=== PATIENT | female | born 1990 | race African-American/Black ===

== ENCOUNTER → 2017-09-15 08:07 | Outpatient (CLI) | payer OTHER, SELFPAY ==
--- NOTE | 2017-09-15 | DI.MRI.S_ITS ---
PROCEDURE: MR KNEE RT WO CON INDICATIONS: right knee pain TECHNIQUE: Noncontrast sagittal PD fast spin echo and T2 fast spin echo with fat saturation, sagittal 3-D FLASH with fat saturation; coronal T1 spin echo and PD fast spin echo with fat saturation, and axial PD fast spin echo with fat saturation through the knee. COMPARISON: None. FINDINGS: Image quality: Excellent. Menisci: The medial and lateral menisci demonstrate normal morphology and internal signal. The meniscal root ligaments appear intact. Cruciate ligaments: The anterior and posterior cruciate ligaments appear intact. Medial structures: The medial collateral ligament appears intact. The posterior oblique ligament, semimembranosus tendon insertions, oblique popliteal ligament, and meniscocapsular junction appear intact. Visualized portions of the pes anserinus tendons appear normal. No abnormal bursal fluid. Lateral structures: The lateral collateral ligament, long and short heads of the biceps femoris tendon appear intact. The popliteus tendon appears normal; the popliteofibular ligament appears intact. The posterosuperior and anteroinferior popliteomeniscal fascicles appear intact. The arcuate and fabellofibular ligaments appear intact, on either side of the lateral inferior geniculate artery. Iliotibial band appears normal. Anterior structures: The quadriceps and patellar tendons appear intact. Patellar alignment is normal. No femoral trochlear dysplasia or ventral trochlear prominence. No edema in the infrapatellar fat pad. Bones and cartilage: No bone marrow contusions or fractures. The cartilage of the medial and lateral femorotibial compartments, as well as the patellofemoral compartment, appears normal in thickness. Joint space: There is physiologic knee joint fluid. No Duran's cyst. Normal appearing synovial plicae are incidentally noted. IMPRESSION: No internal derangement in the right knee. Dictated by: Miguel Winters M.D. on 09/15/2017 at 10:18 Approved by: Miguel Winters M.D. on 09/15/2017 at 18:29
== END ==
PROVIDERS: Visit Provider Pediatrics
DX: M25.561 Pain in right knee (principal)
CPT/HCPCS: 73721

== ENCOUNTER 2018-09-14 12:23 | Emergency (ER) | payer OTHER, SELFPAY ==
[2018-09-14 12:27] VITALS: BP 128/70; PULSE 95; RESP 14; TEMP 36.9; O2SAT 100
--- NOTE | 2018-09-14 12:35 | DI.US.S_ITS ---
PROCEDURE: US OB <= 14 WEEKS FETUS INDICATIONS: 11 WEEKS PREG, BRIGHT RED SPOTTING, H/O MIS @ 12 WEEKS OUTSIDE/PRIOR DATING DATA: Last menstrual period (LMP): 06/05/2018. LMP-based estimated date of delivery (ELAINA): 03/12/2019. First dating scan (date and location): 09/14/2018. Estimated date of delivery (ELAINA) from first dating scan: 03/29/2019. TECHNIQUE: Real-time scanning was performed of the fetus and maternal pelvic organs, with image documentation. COMPARISON: None. FINDINGS: Embryo: There is an IUP with heart rate 164 bpm. Based on the current ultrasound, the estimated associated age is 12 weeks 0 day. Small areas of sonolucency around gestational sac may be small gestational bleeds. Measurement variability in dating: +/- 4 weeks by LMP, +/- 7 days by mean sac diameter (use before 6 weeks gestation if crown-rump length not able to be measured), +/- 5 days by crown-rump length (up to 8 weeks 6 days gestation), +/- 7 days by crown-rump length (up to 13 weeks 6 days gestation). Maternal organs: Cervix is closed. Ovaries are normal. There is a corpus luteum cyst in the right ovary. Limited images through the kidneys demonstrate no hydronephrosis. IMPRESSION: 1. A single living intrauterine gestation with an estimated gestational age of 12 weeks 0 day corresponding to ultrasound ELAINA 03/29/2019. 2. ? Small gestational bleeds. 3. A corpus was a cyst in right ovary. Dictated by: Miguel Winters M.D. on 09/14/2018 at 12:50 Approved by: Miguel Winters M.D. on 09/14/2018 at 12:57
[2018-09-14 13:07] LABS: Add Manual Diff / Slide Review NO; Basophils Absolute Auto 0 /uL (0-100); Basophils Percent Auto 0.3 % (0-2); Eosinophils Absolute Auto 0 /uL (0-450); Eosinophils Percent Auto 0.1 % (2-4); Hematocrit 36.4 % (36-46); Lymphocytes Absolute Auto 900 /uL (1100-4500); Lymphocytes Percent Auto 12.4 % (25-40); Mean Corpuscular Hemoglobin 28.2 PG (26-34); Mean Corpuscular Volume 85.6 fL (80-100); Monocytes Absolute Auto 600 /uL (0-900); Monocytes Percent Auto 7.4 % (3-14); Neutrophils Absolute Auto 6100 /uL (1500-7000); Neutrophils Percent Auto 79.8 % (50-75); Platelet Count 228 X10^3/uL (150-400); Red Blood Cell Count 4.25 X10^6/uL (4.0-5.2); Red Cell Distribution Width 17.6 % (11.6-14.8); White Blood Cell Count 7.7 X10^3/uL (4.5-11.0)
[2018-09-14 13:18] LABS: BUN Creatinine Ratio 13.3 (6-22); Blood Urea Nitrogen 8 mg/dL (7-17); Calcium 9.2 mg/dL (8.4-10.2); Carbon Dioxide 26 mmol/L (22-32); Chloride 102 mmol/L (98-107); Estimated Glomerular Filt Rate > 60.0 mL/min (>60); Glucose 92 mg/dL (70-100); HEMOLYSIS < 15 (0-50); Potassium 3.8 mmol/L (3.4-5.1); Sodium 137 mmol/L (137-145)
--- NOTE | 2018-09-14 13:33 | ED.PREGNANCY ---
HPI - <AUSTIN Brooks - Last Filed: 09/14/18 15:08> General Chief complaint: OB/Uterine Contractions Stated complaint: SPOTTING YESTERDAY,CRAMPING,11 WEEKS Time Seen by Provider: 09/14/18 13:04 Source: patient Mode of arrival: ambulatory Limitations: no limitations History of Present Illness HPI Narrative: The patient is a 28-year-old female who is alert weeks and 2 days back. She presents with a chief complaint of vaginal spotting when wiping only yesterday. She complains of slight lower abdominal cramping. She denies any fevers nausea vomiting or diarrhea. She states she has a history of miscarriage at 12 weeks. She states she was last tested for sexually transmitted infections 2 or 3 weeks ago. She has no concerns since her previous testing. She denies any new abnormal vaginal discharge. Related Data Home Medications Medication Instructions Recorded Confirmed [id number] fum-folic [id number] 1 tab PO DAILY 09/14/18 09/14/18 [Daily ] Allergies Allergy/AdvReac Type Severity Reaction Status Date / Time diphenhydramine Allergy Intermediate Hives Verified 09/14/18 12:31 Review of Systems <AUSTIN Brooks - Last Filed: 09/14/18 15:08> Review of Systems GENERAL: Denies chills, fatigue, malaise, fever, sweats. HEENT: Denies sinus pain, ear pain, sore throat, difficulty swallowing, dizziness. RESPIRATORY: See HPI CARDIOVASCULAR: Denies chest pain, palpitations, orthopnea, edema, GASTROINTESTINAL: Denies nausea, vomiting, abdominal pain, diarrhea, constipation, melena. : See HPI MUSCULOSKELETAL: denies weakness, joint pain, or bony pain SKIN: Denies rash, skin lesions, or other NEUROLOGIC: Denies weakness, headache, numbness, change in speech, confusion, seizures, incoordination. PSYCHIATRIC: No concerning psychosocial issues. 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 Normocephalic. No temporal or scalp tenderness. EYES: Pupils equal round and reactive. Extraocular motions intact. No scleral icterus. No injection or drainage. ENT: Nose without bleeding, purulent drainage or septal hematoma. Throat without erythema, tonsillar hypertrophy or exudate. Uvula midline. Airway patent. NECK: Trachea midline. No JVD or lymphadenopathy. Supple, nontender, no meningeal signs. CARDIOVASCULAR: Regular rate and rhythm without murmurs, gallops, or rubs. RESPIRATORY: Clear to auscultation. Breath sounds equal bilaterally. No wheezes, rales, or rhonchi. GASTROINTESTINAL: Abdomen soft, non-tender, nondistended. No hepato-splenomegaly, or palpable masses. No guarding. Active bowel sounds. No pain to palpation. EXTREMITIES: No clubbing, cyanosis, or edema. No joint tenderness, effusion, or edema noted. BACK: Nontender without deformity or crepitance. No flank tenderness. NEURO: AOx3. SKIN: No rash or erythema. Initial Vital Signs Initial Vital Signs: Vital Signs Temperature 98.4 F 09/14/18 12:27 Pulse Rate 95 H 09/14/18 12:27 Respiratory Rate 14 09/14/18 12:27 Blood Pressure 128/70 09/14/18 12:27 Pulse Oximetry 100 09/14/18 12:27 <Kelly Mustafa DO - Last Filed: 09/14/18 19:17> Initial Vital Signs Initial Vital Signs: Vital Signs Temperature 98.4 F 09/14/18 12:27 Pulse Rate 95 H 09/14/18 12:27 Respiratory Rate 14 09/14/18 12:27 Blood Pressure 128/70 09/14/18 12:27 Pulse Oximetry 100 09/14/18 12:27 Course <MARIAMA Brooks - Last Filed: 09/14/18 15:08> Orders Ordered: ED Orders 09/14/18 12:35 US OB <= 14 weeks fetus Stat 09/14/18 12:45 ABO RH Type Stat Basic Metabolic Panel Stat Complete Blood Count AUTO DIFF Stat HCG Quantitative Stat Vital Signs - 8 hr 09/14/18 12:27 09/14/18 14:46 Temperature 98.4 F Pulse Rate 95 H 80 Respiratory Rate 14 16 Blood Pressure 128/70 Blood Pressure [Right Arm] 134/74 Pulse Oximetry 100 100 <Kelly Mustafa DO - Last Filed: 09/14/18 19:17> Orders Ordered: ED Orders 09/14/18 12:35 US OB <= 14 weeks fetus Stat 09/14/18 12:45 ABO RH Type Stat Basic Metabolic Panel Stat Complete Blood Count AUTO DIFF Stat HCG Quantitative Stat Vital Signs - 8 hr 09/14/18 12:27 09/14/18 14:46 Temperature 98.4 F Pulse Rate 95 H 80 Respiratory Rate 14 16 Blood Pressure 128/70 Blood Pressure [Right Arm] 134/74 Pulse Oximetry 100 100 MDM - OB/Uterine Contractions <AUSTIN BrooksBC - Last Filed: 09/14/18 15:08> Lab Data Result diagrams: 09/14/18 12:45 09/14/18 12:45 Lab Results 09/14/18 09/14/18 09/14/18 Range/Units 12:45 12:45 12:45 WBC 7.7 (4.5-11.0) X10^3/uL RBC 4.25 (4.0-5.2) X10^6/uL Hgb 12.0 (12.0-16.0) g/dL Hct 36.4 (36-46) % MCV 85.6 (80-100) fL MCH 28.2 (26-34) PG MCHC 33.0 (30-36) % RDW 17.6 H (11.6-14.8) % Plt Count 228 (150-400) X10^3/uL Neut % (Auto) 79.8 H (50-75) % Lymph % (Auto) 12.4 L (25-40) % [place] % (Auto) 7.4 (3-14) % Eos % (Auto) 0.1 L (2-4) % Baso % (Auto) 0.3 (0-2) % Neut # (Auto) 6100 (2016-0942) /uL Lymph # (Auto) 900 L (9570-3048) /uL [place] # (Auto) 600 (0-900) /uL Eos # (Auto) 0 (0-450) /uL Baso # (Auto) 0 (0-100) /uL Sodium 137 (137-145) mmol/L Potassium 3.8 (3.4-5.1) mmol/L Chloride 102 (98-107) mmol/L Carbon Dioxide 26 (22-32) mmol/L BUN 8 (7-17) mg/dL Creatinine 0.60 (0.52-1.04) mg/dL Estimated GFR > 60.0 (>60) mL/min BUN/Creatinine Ratio 13.3 (6-22) Glucose 92 (70-100) mg/dL Calcium 9.2 (8.4-10.2) mg/dL HCG, Quant 44685 mIU/mL Blood Type O Positive Point of Care Testing Test Results Positive Urine Dip Bedside Urine Glucose Negative Bedside Urine Bilirubin - Negative Bedside Urine Ketone - Negative Urine Specific [place] 1.015 Bedside Urine Occult Blood - Negative Bedside Urine pH 7.5 Bedside Urine Protein - Negative Bedside Urine Urobilinogen - Negative Bedside Urine Nitrite - Negative Bedside Urine Leukocytes - Negative Esterase Imaging Data ultrasound: Radiologist's impression: [address] [address] Ultrasound Report Signed Patient: Marquis Estrada#: [id number] : 1990Acct:[id number] Age/Sex: 28 / FDate of Service: 09/14/18 Loc: ED Accession Number: [id number] Procedure: US OB <= 14 weeks fetus Ordering Provider: Kelly Rodriguez RN IMMUNOLOGY-BC PROCEDURE: US OB <= 14 WEEKS FETUS INDICATIONS: 11 WEEKS PREG, BRIGHT RED SPOTTING, H/O MIS @ 12 WEEKS OUTSIDE/PRIOR DATING DATA: Last menstrual period (LMP): 06/05/2018. LMP-based estimated date of delivery (ELAINA): 03/12/2019. First dating scan (date and location): 09/14/2018. Estimated date of delivery (ELAINA) from first dating scan: 03/29/2019. TECHNIQUE: Real-time scanning was performed of the fetus and maternal pelvic organs, with image documentation. COMPARISON: None. FINDINGS: Embryo: There is an IUP with heart rate 164 bpm. Based on the current ultrasound, the estimated associated age is 12 weeks 0 day. Small areas of sonolucency around gestational sac may be small gestational bleeds. Measurement variability in dating: +/- 4 weeks by LMP, +/- 7 days by mean sac diameter (use before 6 weeks gestation if crown-rump length not able to be measured), +/- 5 days by crown-rump length (up to 8 weeks 6 days gestation), +/- 7 days by crown-rump length (up to 13 weeks 6 days gestation). Maternal organs: Cervix is closed. Ovaries are normal. There is a corpus luteum cyst in the right ovary. Limited images through the kidneys demonstrate no hydronephrosis. IMPRESSION: 1. A single living intrauterine gestation with an estimated gestational age of 12 weeks 0 day corresponding to ultrasound ELAINA 03/29/2019. 2. ? Small gestational bleeds. 3. A corpus was a cyst in right ovary. Dictated by: Miguel Winters M.D. on 09/14/2018 at 12:50 Approved by: Miguel Winters M.D. on 09/14/2018 at 12:57 MDM Narrative Medical decision making narrative: The patient is a 28-year-old female who presents with chief complaint of some vaginal spotting last night. She has no current spotting and no current symptoms at this point time. Ultrasound shows possibility of small gestational bleeds. I discussed at length pelvic rest. Encouraged close follow-up with her primary care OBGYN as soon as possible. Encouraged rest and fluids. Encouraged her to come back to the emergency department for any acute concerns such as dizziness, severe vaginal bleeding etc. Patient has no acute concerns upon discharge. Ambulates steadily outside of the department. She was hemodynamically stable throughout her stay in the emergency department. <Kelly Mustafa, DO - Last Filed: 09/14/18 19:17> Lab Data Lab Results 09/14/18 09/14/18 09/14/18 Range/Units 12:45 12:45 12:45 WBC 7.7 (4.5-11.0) X10^3/uL RBC 4.25 (4.0-5.2) X10^6/uL Hgb 12.0 (12.0-16.0) g/dL Hct 36.4 (36-46) % MCV 85.6 (80-100) fL MCH 28.2 (26-34) PG MCHC 33.0 (30-36) % RDW 17.6 H (11.6-14.8) % Plt Count 228 (150-400) X10^3/uL Neut % (Auto) 79.8 H (50-75) % Lymph % (Auto) 12.4 L (25-40) % [place] % (Auto) 7.4 (3-14) % Eos % (Auto) 0.1 L (2-4) % Baso % (Auto) 0.3 (0-2) % Neut # (Auto) 6100 (1307-7420) /uL Lymph # (Auto) 900 L (0083-2433) /uL [place] # (Auto) 600 (0-900) /uL Eos # (Auto) 0 (0-450) /uL Baso # (Auto) 0 (0-100) /uL Sodium 137 (137-145) mmol/L Potassium 3.8 (3.4-5.1) mmol/L Chloride 102 (98-107) mmol/L Carbon Dioxide 26 (22-32) mmol/L BUN 8 (7-17) mg/dL Creatinine 0.60 (0.52-1.04) mg/dL Estimated GFR > 60.0 (>60) mL/min BUN/Creatinine Ratio 13.3 (6-22) Glucose 92 (70-100) mg/dL Calcium 9.2 (8.4-10.2) mg/dL HCG, Quant 43675 mIU/mL Blood Type O Positive Point of Care Testing Test Results Positive Urine Dip Bedside Urine Glucose Negative Bedside Urine Bilirubin - Negative Bedside Urine Ketone - Negative Urine Specific [place] 1.015 Bedside Urine Occult Blood - Negative Bedside Urine pH 7.5 Bedside Urine Protein - Negative Bedside Urine Urobilinogen - Negative Bedside Urine Nitrite - Negative Bedside Urine Leukocytes - Negative Esterase Discharge Plan Departure Patient Disposition: Home Clinical Impression: Threatened miscarriage Discharge Date/Time: 09/14/18 14:56 Interventions: ED Discharge Assessment Last Done: 09/14/18 14:56 Instructions: DI for Threatened Activity Restrictions/Additional Instructions: Your ultrasound came back with possible gestational bleeding today. Please do pelvic rest, which is strict for the next several days. Please to not have sex or place anything in the vagina. Come back to the emergency department if needed for severe hemorrhage or acute concerns. Please follow up with primary care OBGYN in the next few days as we discussed. Prescriptions: No Action Daily [id number] mg-mcg-mg Combo Pack 1 tab PO DAILY RF: 0 Referrals: [facility] [Provider Group] Stand Alone Forms: Work Release Note <Kelly Mustafa DO - Last Filed: 09/14/18 19:17> Cosign ED Attending Cosignature Attestation: I was immediately available in the department for consultation, case discussed, rh positive, hcg appropriate, US shows possible gestation bleed and plan for watchful waiting, pelvic rest and fu with ob care. This documentation has been reviewed and I agree with assessment and plan. Supervised by Kelly Mustafa DO
[2018-09-14 14:00] LABS: HCG Quantitative /Beta subunit 84349 mIU/mL
[2018-09-14 14:46] VITALS: BP 134/74; PULSE 80; RESP 16; O2SAT 100
== END 2018-09-14 14:56 | disposition home or self-care (01) ==
PROVIDERS: Emergency Provider Nurse Practitioner Family
DX: O20.0 Threatened abortion (principal); Z3A.14 14 weeks gestation of pregnancy
CPT/HCPCS: 36415; 76801; 80048; 81003; 81025; 84702; 85025; 86900; 86901; 99282; 99284

== ENCOUNTER 2018-11-17 17:13 | Outpatient (CLI) | payer OTHER, SELFPAY ==
--- NOTE | 2018-11-17 18:03 | PM.OBTRLD ---
Visit Information Visit Information Date of evaluation: 11/17/18 On-call OB Provider: Judith Mckenzie Reason for Evaluation: Yes other Comments/Additional reasons for admission: Patient is a 2 para 0 EDC 03/31 at 20 weeks by dates who comes in after a fall striking abdomen Vital Signs Vital Signs: Blood pressure 117/73, pulse 94, temperature 97.4? [facility] Medical History (Updated 11/17/18 @ 19:07 by Judith Mckenzie MD) Miscarriage within last 12 months (Acute) Social History Smoking Status: Never smoker Social History Smoking Status: Never smoker Review of Systems Review of Systems Patient states she is feeling the baby move. She denies any vaginal bleeding. She has some mild cramping. She has pain in her back and her right side. All systems reviewed & are unremarkable except as noted in HPI and below Exam Vital Signs (past 8 hours): Blood pressure 117/73, pulse 94, temperature 97.4? Narrative Exam Narrative: Patient has some mild tenderness of her abdomen with more tenderness on the right side than the left. She has some tenderness on the left back area. No vaginal bleeding or leakage of fluid. Extremities is nontender. Patient requested ultrasound which was performed just for reassurance for her. There is normal amniotic fluid. Good movement. No evidence of abruption of the placenta. Evaluation Evaluation Baseline heart rate: 140 Variability: Average (6-10) monitor accelerations: Present monitor decelerations: Absent Contraction Frequency (minutes): 0 Category of Tracing: I (Appropriate for 20 week gestation) Diagnosis, Plan/Disposition Final Diagnosis (1) Blunt abdominal trauma: Current Visit: No Status: Acute (2) 20 weeks gestation of : Current Visit: No Status: Acute Plan/Disposition Plan: No evidence complication from her fall. She is to call if she has vaginal bleeding, increasing pain or other concerns. OB Disposition: home
== END 2018-11-17 18:09 | disposition home or self-care (01) ==
LOC: OB 11-20 10:30
PROVIDERS: Visit Provider Specialist
DX: O26.892 Other specified pregnancy related conditions, second trimester (principal); S39.81XA Other specified injuries of abdomen, initial encounter; W19.XXXA Unspecified fall, initial encounter; Z3A.20 20 weeks gestation of pregnancy
CPT/HCPCS: 59025; 59050; 76815; G0378; G0379